=== PATIENT | male | born 1955 | race American Indian/Alaskan Native ===

== ENCOUNTER 2020-08-15 10:53 | Day surgery (SDC) | payer MEDICARE ==
[~2020-08-15] VITALS: Ht 172.7 cm; Wt 76.3 kg
[2020-08-15 11:22] VITALS: BP 143/79; PULSE 74; TEMP 98.3
[2020-08-15] MEDS ORDERED: PRILOSEC 20MG20 MG PO (11:26)
[2020-08-15] MEDS ORDERED: MOBIC 7.5MG7.5 MG PO (11:28)
[2020-08-15] MEDS ORDERED: LIPITOR 40MG TA40 MG PO (11:29)
[2020-08-15] MEDS ORDERED: ONE-A-DAY ESSE1 EACH PO (11:30)
[2020-08-15] MEDS ORDERED: BENICAR 20MG TA20 MG PO (11:30)
[2020-08-15] MEDS ORDERED: MASON NATURAL2000 IU PO (11:31)
[2020-08-15] MEDS ORDERED: ASPIRIN 81M81 MG/TA2 PO (11:31)
[2020-08-15] MEDS ORDERED: VENTOLIN0.09 MG IH (11:39)
[2020-08-15] MEDS ORDERED: NORCO 325 MG-51 TAB PO (15:00)
[2020-08-15 15:45] VITALS: BP 149/72; PULSE 68; TEMP 97.8
--- NOTE | 2020-08-15 15:45 | NUR ---
TO RM 7 PER CART FROM PACU. ALERT ORIENTED X3, TALKING TO STAFF. C/O PAIN 3/10 AND DENIES NEED ANY PAIN MEDICATION. 3 BANDA[employer]ES CLEAN DRY INTACT. NOT DRAINAGE NOTED. RECEIVED WATER AND TAKING SIPS.
[2020-08-15 16:00] VITALS: BP 146/80; PULSE 71
--- NOTE | 2020-08-15 16:00 | NUR ---
DRANK CUP OF WATER. RECIEVED LAURIE. PUDDING AND 2ND CUP OF WATER. 02 SAT 100% ON 02 AT 2L, DISCONTINUED O2.
[2020-08-15 16:15] VITALS: BP 157/92; PULSE 73
--- NOTE | 2020-08-15 16:15 | NUR ---
ATE 100% AND TOLERATED WELL PATIENT TEXTING ON CELL PHONE.
[2020-08-15 16:30] VITALS: BP 142/84; PULSE 71
--- NOTE | 2020-08-15 16:30 | NUR ---
NO NEW CHANGES TOLERATED PO WELL.
--- NOTE | 2020-08-15 16:45 | NUR ---
AMBULATED TO BATHROOOM WITH MININAL ASSIST. VOIDED AND AMBULAED BACK TO . DISCONTINUED IV AND INT- CATHETER INTACT.
--- NOTE | 2020-08-15 16:55 | NUR ---
RECEIVED DISCHARGE INSTRUCTIONS AND VERBALIED UNDERSTANDING.
--- NOTE | 2020-08-15 17:05 | NUR ---
DISCHARGED PER WC BY NURSING STAFF TO PRIVATE CAR IN CARE OF DOM.
== END 2020-08-15 17:10 | disposition home or self-care (01) ==
LOC: SDCO 10:53
DX: K40.20 Bilateral inguinal hernia, without obstruction or gangrene, not specified as recurrent (principal); I10 Essential (primary) hypertension; E78.5 Hyperlipidemia, unspecified; J45.20 Mild intermittent asthma, uncomplicated; K21.9 Gastro-esophageal reflux disease without esophagitis; Z86.16 Personal history of COVID-19; Z79.82 Long term (current) use of aspirin; Z79.899 Other long term (current) drug therapy; Z79.1 Long term (current) use of non-steroidal anti-inflammatories (NSAID)
CPT/HCPCS: C1781; J0330; J0690; J1100; J1170; J2405; J2704; J3010; J7120